=== PATIENT | female | born 1975 | race Caucasian/White ===

== ENCOUNTER → 2019-10-17 | Outpatient (CLI) | payer OTHER ==
[~2019-10-17] MED LIST: DULO60CA6 PO; HYDR-2765 PO; HYDR25TA10 PO; LEVO75TA5 PO; LINZESS290 MCG PO; PREG150C PO; TIZA4TAB2 PO
--- NOTE | 2019-10-17 13:54 | PAIN ---
DATE OF SERVICE: 10/17/2019 INITIAL CONSULTATION FOR PAIN CLINIC CHIEF COMPLAINT: Low back and left lower extremity pain. HISTORY OF PRESENT ILLNESS: This is a 43-year-old female with reports of pain since about 2014, gradually increasing, not a result of any specific injury or action she is aware of, but has been present for many years. 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 The patient reports it is getting much worse in the low back and into the bilateral lower extremities worse on the left than the right, but present bilaterally. The patient reports no loss of motor function, but significant fatigability with the legs when walking, which is from sleep at least once a night, does not affect her bowel or bladder control, but can affect her ability to walk with fatigue, but she is not using any assistive devices to ambulate. The patient had a CT scan of the lumbar spine in an outside facility dated 11/03/2018 showing no acute fractures with [id number] L2-L3 degenerative disk disease. Other levels normal on CT at that time. The patient has had no other diagnostic studies since that time. The patient reports the pain is constant, throbbing and shooting in the lower extremities, posterior gluteus, across the low back into the lateral thigh, anterior thigh and wraps around into the medial thigh, medial lower leg, again worse on the left than the right, but present bilaterally. The patient rates her disability from 0-10; 10 being worst; 6 with family and home responsibilities and recreation; 8 with social activity, occupations; 4 with sexual behavior; 2 with self-care and 5 with life support activities. PAST MEDICAL HISTORY: Significant for arthritis, cervical cancer, status post hysterectomy in 2018. PREVIOUS SURGERY: Include , ORIF of the left foot, bladder sling, vaginal biopsy, hysterectomy in 2018 secondary to the cervical cancer, gastric bypass 2004 and small bowel resection in 2006. CURRENT MEDICATIONS: Include Lyrica, Cymbalta, hydrochlorothiazide, levothyroxine, Lortab, tizanidine and Linzess. ALLERGIES: THE PATIENT IS ALLERGIC TO REGLAN AND TETRACYCLINE. FAMILY HISTORY: Significant for cancers. SOCIAL HISTORY: The patient does not drink, does not smoke, does not use any illegal, illicit or recreational drugs. She is , lives with her spouse and 2 children living at home, lives locally in [place], [place]. The patient's is active on the [employer] base. REVIEW OF SYSTEMS: The patient's review of systems is positive for those items mentioned in history of present illness. All systems reviewed and otherwise negative. It is complete, full and well documented on the patient's chart. PHYSICAL EXAMINATION: VITAL SIGNS: The patient's blood pressure is 137/78, pulse 63, respirations 18, temperature 98.5 degrees Fahrenheit, height 5 feet 7 inches, weight is 261 pounds. GENERAL: The patient is awake, alert, oriented, appropriate, very pleasant demeanor. HEENT: Shows normocephalic, atraumatic. Extraocular movements are intact and symmetrical. Oral cavity: Mucous membranes moist and pink. Dentition is intact. NECK: Shows anterior throat supple without palpable lymphadenopathy noted. Swallow reflex symmetrical. CHEST: Shows normal on inspection. Breath sounds clear to auscultation bilaterally. HEART: Shows S1, S2 clear. No murmurs auscultated. ABDOMEN: Soft, nontender, nondistended. No palpable organomegaly is noted. No rebound or guarding demonstrated. BACK: Shows spine grossly in the midline. Normal appearing thoracic kyphosis and minor flattening of lumbar lordotic curvature. Lumbar paraspinous muscle shows symmetrical on inspection, on palpation shows some moderate tenderness diffusely bilaterally, but only diffusely without significant radiation. Paraspinous musculature is symmetrical but firm again without trigger points or radiation. The patient has good rotational motion of lumbar spine, both laterally greater than 10 degrees right and left as well as extension greater than 10 degrees, some mild tenderness with extension, but not with forward flexion at 45 degrees is performed fully without difficulty. No tenderness over the spinous processes, sacrum or sacroiliac regions. EXTREMITIES: The patient's lower extremities show deep tendon reflexes at 2+ in the patellar, 1+ tendo-calcaneus tendons. Motor exam is approximately 4 on a scale of 5, but equal and symmetrical bilaterally. Peripheral pulses are 1+ posterior tibia. No peripheral edema is noted. Lower extremities are warm and dry to touch, equal in color and appearance. Straight leg raise noted to be negative bilaterally for reproduction of radicular symptoms. Gaenslen's and Avtar's maneuvers are negative bilaterally as well. The patient is able to stand, stand on her toes without significant difficulty or loss of balance, walking with a normal appearing gait, does not appear to favor the right or left lower extremity significantly, not using any assistive devices such as canes or walkers to ambulate. SKIN: Shows warm and dry, good turgor. No edema. No sores, rashes or bruising throughout. IMPRESSION: 1. This is a 43-year-old female with long history of 5 years low back and left lower extremity pain in a radicular fashion. 2. CT scan of lumbar spine as noted. 3. Arthritis. 4. History of cervical cancer. PLAN: Options were discussed with the patient including conservative medical managements, continued physical therapies, interventional techniques. She has had physical therapy before and her works with physical therapist and has been doing some exercises and stretching and strengthening for her as well as her doctor pursue interventional techniques. We discussed a lumbar epidural steroid injection using description as well as anatomical models to describe the procedure. Wait for preauthorization from her insurance provider. She has had a clinical radiculopathy at L4-L5 dermatomal distribution, left greater than right. The patient in the meantime will continue with physical therapy exercises, stretching and strengthening, anti-inflammatories that she has been taking and will have her return to clinic in approximately 1 week to plan on lumbar epidural steroid injection at that time, translaminar approach at the L4-L5 level. Also, the patient had a question about hydrocodone that she is taking. Her primary care physician has prescribed her up to 4 tablets a day and has advised her to wean off of these. In agreement, her primary doctor, Dr. Cabrera at [facility] will provide these and weaning parameters to get her off of the narcotic medication slowly and safely and the patient will follow up as scheduled for interventional technique. We also discussed physical therapy. We will put in orders for water therapy through a Physical Therapy Department as she feels to be significantly beneficial for the patient as well with low back pain and weight loss also. The patient agrees and will follow up as scheduled. RANGEL WHITAKER MD DR: ALO/merry JOB#: [id number] / [id number] CHRISTIAN Mobley MD
== END | disposition home or self-care (01) ==
LOC: PNCL 10:12
PROVIDERS: ATTEND Anesthesiology
DX: M79.662 Pain in left lower leg (principal); M19.90 Unspecified osteoarthritis, unspecified site; Z88.8 Allergy status to other drugs, medicaments and biological substances; Z79.899 Other long term (current) drug therapy; Z85.41 Personal history of malignant neoplasm of cervix uteri; Z85.89 Personal history of malignant neoplasm of other organs and systems
CPT/HCPCS: G0463